=== PATIENT | female | born 1970 | race Caucasian/White ===

== ENCOUNTER 2021-01-20 22:08 | Emergency (ER) | payer SELFPAY ==
[~2021-01-20] VITALS: Ht 157.5 cm; Wt 63.0 kg
[2021-01-20 22:21] VITALS: BP 156/91
[2021-01-20] MEDS ORDERED: diphenhydrAMINE 50 MG/ML VIAL IM ONE (22:30)
--- NOTE | 2021-01-20 22:30 | NUR ---
PATIENT TO LOBBY
--- NOTE | 2021-01-20 22:51 | NUR ---
PT AMBULATED TO BED 3
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
[2021-01-20] MEDS ORDERED: DIPH25TA53 PO (23:34)
[2021-01-20] MEDS ORDERED: EPIN1KIT31 IM (23:34)
[2021-01-20 23:44] VITALS: BP 156/91
--- NOTE | 2021-01-20 23:44 | NUR ---
Patient discharged with v/s stable. Written and verbal after care instructions given and explained. Patient alert, oriented and verbalized understanding of instructions. Ambulatory with steady gait. All questions addressed prior to discharge. ID band removed. Patient advised to follow up with PMD. Rx of BENADRYL AND EPIPEN given. Patient educated on indication of medication including possible reaction and side effects. Opportunity to ask questions provided and answered.
== END 2021-01-20 23:44 | disposition home or self-care (01) ==
LOC: MED 22:08
DX: T63.441A Toxic effect of venom of bees, accidental (unintentional), initial encounter (principal); Y92.89 Other specified places as the place of occurrence of the external cause
CPT/HCPCS: 96372; 99283; J1200; Q0163